=== PATIENT | female | born 2000 | race Caucasian/White ===

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

== ENCOUNTER → 2021-04-12 | Outpatient (CLI) | payer BC | END | disposition home or self-care (01) | LOC: LAB 16:55 | DX: L70.0 Acne vulgaris (principal); Z79.899 Other long term (current) drug therapy ==

== ENCOUNTER → 2021-06-28 | Outpatient (CLI) | payer BC | END | disposition home or self-care (01) | LOC: LAB 14:35 → LAB SHORT 14:35 | DX: L70.0 Acne vulgaris (principal); Z79.899 Other long term (current) drug therapy | CPT/HCPCS: 81025 ==